=== PATIENT | male | born 1995 | race Hispanic/Latino ===

== ENCOUNTER 2023-06-09 08:09 | Emergency (ER) | payer OTHER ==
[~2023-06-09] VITALS: Ht 175.3 cm; Wt 62.1 kg
[2023-06-09] MEDS ORDERED: METH-1165 PO (11:15)
[2023-06-09] MEDS ORDERED: NAPR-837 PO (11:15)
[2023-06-09 11:33] VITALS: BP 135/84; TEMP 98.5; O2SAT 96
== END 2023-06-09 11:35 | disposition home or self-care (01) ==
LOC: M ED 08:09
DX: S13.4XXA Sprain of ligaments of cervical spine, initial encounter (principal); F17.200 Nicotine dependence, unspecified, uncomplicated; J45.909 Unspecified asthma, uncomplicated; V49.40XA Driver injured in collision with unspecified motor vehicles in traffic accident, initial encounter; Z79.1 Long term (current) use of non-steroidal anti-inflammatories (NSAID); Z79.899 Other long term (current) drug therapy

== ENCOUNTER 2023-09-13 07:21 | Inpatient (IN) | payer OTHER ==
[~2023-09-13] VITALS: Ht 175.3 cm; Wt 60.1 kg
[~2023-09-13 07:21] MED LIST: METH-1165 PO; NAPR-837 PO
[2023-09-13 08:20] LABS: HEMATOCRIT 51.1 % (42.0-52.0); HEMOGLOBIN 17.5 g/dl (13.5-17.5); MEAN CORPUSCULAR HEMOGLOBIN 32.8 pg (27.0-33.0); MEAN CORPUSCULAR HGB CONC 34.2 g/dl (32.0-36.5); MEAN CORPUSCULAR VOLUME 95.9 fl (80.0-96.0); PLATELET COUNT, AUTOMATED 245 10^3/uL (150-450); RED BLOOD COUNT 5.33 10^6/uL (4.30-6.10); WHITE BLOOD COUNT 10.1 10^3/uL (4.0-10.0)
[2023-09-13 08:44] LABS: ALBUMIN 4.8 G/DL (3.2-5.2); ALKALINE PHOSPHATASE 109 U/L (46-116); ALT/SGPT 22 U/L (7.0-40); AST/SGOT 11 U/L (<34); BILIRUBIN,DIRECT 0.2 MG/DL (<0.4); BILIRUBIN,TOTAL 0.6 MG/DL (0.3-1.2); BLOOD UREA NITROGEN 25 MG/DL (9-23); CALCIUM LEVEL 10.1 MG/DL (8.5-10.1); CARBON DIOXIDE LEVEL 23 MMOL/L (20-31); CHLORIDE LEVEL 108 MMOL/L (98-107); CREATININE FOR GFR 1.05 MG/DL (0.70-1.30); GLOMERULAR FILTRATION RATE > 60.0 (>60); GLUCOSE, FASTING 105 MG/DL (60-100); POTASSIUM SERUM 4.3 MMOL/L (3.5-5.1); SALICYLATE LEVEL < 3.0 MG/DL (<30); SODIUM LEVEL 139 MMOL/L (136-145); TOTAL PROTEIN 8.2 G/DL (5.7-8.2)
[2023-09-13 08:46] LABS: ETHYL ALCOHOL (ETHANOL) < 0.003 % (0.000-0.010); THYROID STIMULATING HORMONE 1.024 uIU/ML (0.55-4.78)
[2023-09-13] MEDS ORDERED: MED REC IN PROGRESS XX SCH (08:50)
[2023-09-13] MEDS ORDERED: HOME MED LIST COMPLETE! XX SCH (09:35)
[2023-09-13 09:40] LABS: AMPHETAMINES LEVEL URINE NEGATIVE (NEGATIVE)
[2023-09-13 09:41] LABS: BARBITURATES URINE NEGATIVE (NEGATIVE); COCAINE METABOLITE URINE NEGATIVE (NEGATIVE); METHADONE URINE NEGATIVE (NEGATIVE); OPIATES URINE NEGATIVE (NEGATIVE); PHENCYCLIDINE URINE NEGATIVE (NEGATIVE)
[2023-09-13 09:43] LABS: BENZODIAZEPINES URINE POSITIVE (NEGATIVE); CANNABINOIDS URINE POSITIVE (NEGATIVE)
[2023-09-13] MEDS ORDERED: OLANZapine ORAL DISINTEGRATING TAB 5MG PO PRN (14:40)
[2023-09-13] MEDS ORDERED: IBUPROFEN 400MG TAB PO PRN (14:40)
[2023-09-13] MEDS ORDERED: MAALOX 30 ML SUSP *UDC PO PRN (14:40)
[2023-09-13] MEDS ORDERED: diphenhydrAMINE 25MG CAP PO PRN (14:40)
[2023-09-13] MEDS ORDERED: ACETAMINOPHEN TAB 650MG DOSE (2X325MG) PO PRN (14:40)
[2023-09-13] MEDS ORDERED: MOM 30ML SUSPENSION UDC PO PRN (14:40)
[2023-09-13 16:29] VITALS: BP 132/82; TEMP 99.8; O2SAT 99
[2023-09-13] MEDS: traZODone 50 MG TAB PO PRN (20:08)
[2023-09-14 06:40] VITALS: BP 116/66; TEMP 98.4; O2SAT 98
[2023-09-14] MEDS: PROPRANOLOL 10 MG TAB PO SCH ×2 (09:00→20:37)
[2023-09-14] MEDS: NICOTINE 14 MG/24 HR TRANSDERMAL TD SCH (09:55)
[2023-09-14 17:20] VITALS: BP 126/85; TEMP 98.2
[2023-09-14] MEDS: traZODone 50 MG TAB PO PRN (20:32)
[2023-09-14 20:37] VITALS: BP 149/95
[2023-09-14] MEDS ORDERED: QUEtiapine FUMARATE 50MG TAB PO SCH (21:00)
[2023-09-14] MEDS: THIAMINE 100 MG TAB PO SCH (21:00)
[2023-09-14] MEDS ORDERED: LORazepam 1 MG TAB PO ONE (22:55)
[2023-09-15] VITALS (18 sets, daily range): BP systolic 121–165; BP diastolic 68–95; TEMP 98–98.6; O2SAT 97–100
[2023-09-15] MEDS ORDERED: LORazepam 2 MG TAB PO PRN (00:40)
[2023-09-15] MEDS ORDERED: diphenhydrAMINE 50MG/ML VIAL IM STA ×5 (01:24→12:32)
[2023-09-15] MEDS ORDERED: HALOPERIDOL 5MG/ML 1ML VIAL IM STA ×5 (01:24→12:32)
[2023-09-15] MEDS ORDERED: LORazepam 2 MG/ML 1ML VIAL IM STA ×5 (01:24→12:32)
[2023-09-15] MEDS ORDERED: FOLIC ACID 1MG TAB PO SCH (09:00)
[2023-09-15] MEDS ORDERED: MULTIVITAMINS/MINERALS THERAP 1 TAB PO SCH (09:00)
[2023-09-15] MEDS: NICOTINE 14 MG/24 HR TRANSDERMAL TD SCH (09:00)
[2023-09-15] MEDS: PROPRANOLOL 10 MG TAB PO SCH (09:00)
[2023-09-15] MEDS: THIAMINE 100 MG TAB PO SCH (09:00)
[2023-09-15 12:37] LABS: ALBUMIN 4.7 G/DL (3.2-5.2); ALKALINE PHOSPHATASE 101 U/L (46-116); ALT/SGPT 29 U/L (7.0-40); AST/SGOT 107 U/L (<34); BILIRUBIN,TOTAL 1.2 MG/DL (0.3-1.2); BLOOD UREA NITROGEN 30 MG/DL (9-23); CALCIUM LEVEL 9.6 MG/DL (8.5-10.1); CARBON DIOXIDE LEVEL 19 MMOL/L (20-31); CHLORIDE LEVEL 110 MMOL/L (98-107); CHOLESTEROL LEVEL 188 MG/DL (<200); CHOLESTEROL RISK RATIO 5.23 (<5); CREATININE FOR GFR 1.16 MG/DL (0.70-1.30); GLOMERULAR FILTRATION RATE > 60.0 (>60); GLUCOSE, FASTING 103 MG/DL (60-100); HDL CHOLESTEROL 35.9 MG/DL (>40); LDL CHOLESTEROL 132.7 MG/DL (<100); NON-HDL-C 152.1 MG/DL; POTASSIUM SERUM 4.1 MMOL/L (3.5-5.1); SODIUM LEVEL 139 MMOL/L (136-145); TOTAL PROTEIN 7.6 G/DL (5.7-8.2); TRIGLYCERIDES LEVEL 97 MG/DL (<150)
[2023-09-15 13:06] LABS: BASO % 0.2 % (0.0-1.0); EOS % 0.1 % (0.0-3.0); HEMATOCRIT 47.8 % (42.0-52.0); HEMOGLOBIN 16.9 g/dl (13.5-17.5); LYMPH # 2.3 10^3/uL (1.5-5.0); LYMPH % 14.9 % (24.0-44.0); MEAN CORPUSCULAR HEMOGLOBIN 33.1 pg (27.0-33.0); MEAN CORPUSCULAR HGB CONC 35.4 g/dl (32.0-36.5); MEAN CORPUSCULAR VOLUME 93.5 fl (80.0-96.0); MONO # 1.8 10^3/uL (0.0-0.8); MONO % 11.7 % (2.0-8.0); NEUTROPHILS % 72.6 % (36.0-66.0); PLATELET COUNT, AUTOMATED 233 10^3/uL (150-450); RED BLOOD COUNT 5.11 10^6/uL (4.30-6.10); WHITE BLOOD COUNT 15.2 10^3/uL (4.0-10.0)
[2023-09-15 13:09] LABS: CPK CREATINE PHOSPHOKINASE 5016 U/L (46-171)
== END 2023-09-15 13:52 | disposition short-term general hospital (02) | DRG 776 ==
LOC: M ED 07:21 → M ED INP 14:37 → M PSY 15:51
PROVIDERS: ADMIT Student in an Organized Health Care Education/Training Program; ATTEND Student in an Organized Health Care Education/Training Program
DX: F12.951 Cannabis use, unspecified with psychotic disorder with hallucinations (principal); J45.909 Unspecified asthma, uncomplicated; F43.20 Adjustment disorder, unspecified; F60.89 Other specific personality disorders; F17.210 Nicotine dependence, cigarettes, uncomplicated; Z78.1 Physical restraint status; Z56.0 Unemployment, unspecified; Z63.0 Problems in relationship with spouse or partner; Z20.822 Contact with and (suspected) exposure to COVID-19

== ENCOUNTER 2023-09-15 12:56 | Inpatient (IN) | payer OTHER ==
[2023-09-15] VITALS (7 sets, daily range): BP systolic 114–150; BP diastolic 81–94; TEMP 98–98.3; O2SAT 94–99
[2023-09-15] MEDS ORDERED: LORazepam 2 MG/ML 1ML VIAL IM PRN (14:00)
[2023-09-15] MEDS ORDERED: LORazepam 2 MG/ML 1ML VIAL IV PRN (14:15)
[2023-09-15] MEDS: dexmedeTOMidine 200 MCG in IV 1 EA IV SCH ×4 (14:15→22:08)
[2023-09-15] MEDS: D5W/LR 1,000 ML IV SCH ×3 (14:16→23:08)
[2023-09-15 15:28] LABS: BLOOD UREA NITROGEN 31 MG/DL (9-23); CALCIUM LEVEL 9.2 MG/DL (8.5-10.1); CARBON DIOXIDE LEVEL 23 MMOL/L (20-31); CHLORIDE LEVEL 111 MMOL/L (98-107); CREATININE FOR GFR 1.29 MG/DL (0.70-1.30); GLOMERULAR FILTRATION RATE > 60.0 (>60); GLUCOSE, FASTING 113 MG/DL (60-100); POTASSIUM SERUM 4.2 MMOL/L (3.5-5.1); SODIUM LEVEL 140 MMOL/L (136-145)
[2023-09-15 15:40] LABS: CPK CREATINE PHOSPHOKINASE 5466 U/L (46-171)
[2023-09-15] MEDS: LORazepam 2 MG/ML 1ML VIAL IV PRN ×3 (16:33→23:11)
[2023-09-15] MEDS ORDERED: HOME MED LIST COMPLETE! XX SCH (18:00)
[2023-09-16] VITALS (9 sets, daily range): BP systolic 117–155; BP diastolic 63–84; TEMP 97.8–99.5; O2SAT 98–100
[2023-09-16] MEDS: D5W/LR 1,000 ML IV SCH ×2 (03:43→07:38)
[2023-09-16 04:47] LABS: ALBUMIN 3.3 G/DL (3.2-5.2); ALKALINE PHOSPHATASE 82 U/L (46-116); ALT/SGPT 25 U/L (7.0-40); AST/SGOT 61 U/L (<34); BLOOD UREA NITROGEN 22 MG/DL (9-23); CALCIUM LEVEL 8.5 MG/DL (8.5-10.1); CARBON DIOXIDE LEVEL 25 MMOL/L (20-31); CHLORIDE LEVEL 111 MMOL/L (98-107); CREATININE FOR GFR 0.98 MG/DL (0.70-1.30); GLOMERULAR FILTRATION RATE > 60.0 (>60); GLUCOSE, FASTING 114 MG/DL (60-100); MAGNESIUM LEVEL 1.7 MG/DL (1.8-2.4); PHOSPHORUS LEVEL 3.9 MG/DL (2.5-4.9); POTASSIUM SERUM 4.1 MMOL/L (3.5-5.1); SODIUM LEVEL 141 MMOL/L (136-145); TOTAL PROTEIN 5.6 G/DL (5.7-8.2)
[2023-09-16 05:13] LABS: CPK CREATINE PHOSPHOKINASE 3365 U/L (46-171)
[2023-09-16] MEDS ORDERED: MAG SULF 1GM/100ML (MAG RUN) 1 GM in IV 1 EA IV ONE ×2 (07:45→15:00)
[2023-09-16] MEDS: ENOXAPARIN 40MG/0.4ML SYRINGE (J1650 PER 10MG) SC SCH (08:05)
[2023-09-16] MEDS ORDERED: D5W/LR 1,000 ML IV SCH (14:10)
[2023-09-16] MEDS ORDERED: LORazepam 2 MG/ML 1ML VIAL IV PRN (14:20)
[2023-09-16] MEDS ORDERED: OLANZapine 5 MG TAB PO PRN (14:20)
[2023-09-16] MEDS: LR 1,000 ML IV SCH ×2 (14:29→23:34)
[2023-09-17 04:01] VITALS: BP 140/78; TEMP 99.1; O2SAT 96
[2023-09-17 06:18] LABS: BASO % 0.3 % (0.0-1.0); EOS # 0.2 10^3/uL (0.0-0.5); EOS % 2.1 % (0.0-3.0); HEMATOCRIT 40.8 % (42.0-52.0); LYMPH # 2.3 10^3/uL (1.5-5.0); LYMPH % 30.5 % (24.0-44.0); MEAN CORPUSCULAR HEMOGLOBIN 33.2 pg (27.0-33.0); MEAN CORPUSCULAR VOLUME 94.7 fl (80.0-96.0); MONO # 0.7 10^3/uL (0.0-0.8); NEUTROPHILS # 4.4 10^3/uL (1.5-8.5); NEUTROPHILS % 57.8 % (36.0-66.0); PLATELET COUNT, AUTOMATED 172 10^3/uL (150-450); RED BLOOD COUNT 4.31 10^6/uL (4.30-6.10); WHITE BLOOD COUNT 7.7 10^3/uL (4.0-10.0)
[2023-09-17 06:19] LABS: HEMOGLOBIN 14.3 g/dl (13.5-17.5)
[2023-09-17] MEDS: LR 1,000 ML IV SCH ×2 (06:20→14:20)
[2023-09-17 06:40] LABS: BLOOD UREA NITROGEN 12 MG/DL (9-23); CALCIUM LEVEL 8.6 MG/DL (8.5-10.1); CARBON DIOXIDE LEVEL 27 MMOL/L (20-31); CHLORIDE LEVEL 111 MMOL/L (98-107); CREATININE FOR GFR 0.92 MG/DL (0.70-1.30); GLOMERULAR FILTRATION RATE > 60.0 (>60); GLUCOSE, FASTING 83 MG/DL (60-100); POTASSIUM SERUM 3.8 MMOL/L (3.5-5.1); SODIUM LEVEL 144 MMOL/L (136-145)
[2023-09-17 06:52] LABS: CPK CREATINE PHOSPHOKINASE 2743 U/L (46-171)
[2023-09-17] MEDS ORDERED: LR 1,000 ML IV ONE (08:00)
[2023-09-17] MEDS: ENOXAPARIN 40MG/0.4ML SYRINGE (J1650 PER 10MG) SC SCH (08:08)
[2023-09-17 14:00] VITALS: BP 118/74; TEMP 99; O2SAT 99
== END 2023-09-17 17:25 | DRG 52 ==
LOC: M ICU 13:55 → M MSPAV 09-16 22:43
PROVIDERS: ADMIT Internal Medicine Pulmonary Disease; ATTEND Internal Medicine
DX: G92.8 Other toxic encephalopathy (principal); M62.82 Rhabdomyolysis; F12.151 Cannabis abuse with psychotic disorder with hallucinations; E83.42 Hypomagnesemia; F17.200 Nicotine dependence, unspecified, uncomplicated; F32.A Depression, unspecified; E86.0 Dehydration

== ENCOUNTER 2023-09-17 11:56 | Inpatient (IN) | payer OTHER ==
[~2023-09-17] VITALS: Ht 175.3 cm; Wt 56.9 kg
[2023-09-17] MEDS: NICOTINE 21MG/24HR 1 EA TRANSDERMAL TD SCH (09:00)
[2023-09-17] MEDS ORDERED: MOM 30ML SUSPENSION UDC PO PRN (12:00)
[2023-09-17] MEDS ORDERED: diphenhydrAMINE 25MG CAP PO PRN (12:00)
[2023-09-17] MEDS ORDERED: LORazepam 1 MG TAB PO PRN (12:00)
[2023-09-17] MEDS ORDERED: ACETAMINOPHEN TAB 650MG DOSE (2X325MG) PO PRN (12:00)
[2023-09-17] MEDS ORDERED: IBUPROFEN 400MG TAB PO PRN (12:00)
[2023-09-17] MEDS ORDERED: MAALOX 30 ML SUSP *UDC PO PRN (12:00)
[2023-09-17 17:26] VITALS: BP 145/91; TEMP 98.2; O2SAT 100
[2023-09-17] MEDS: traZODone 50 MG TAB PO PRN (20:42)
[2023-09-17] MEDS: OLANZapine 2.5MG TABLET PO SCH (20:42)
[2023-09-18 06:49] VITALS: BP 126/72; TEMP 98.6; O2SAT 100
[2023-09-18] MEDS: NICOTINE 21MG/24HR 1 EA TRANSDERMAL TD SCH (09:07)
[2023-09-18] MEDS: OLANZapine 2.5MG TABLET PO SCH ×2 (09:07→20:18)
[2023-09-18 16:21] VITALS: BP 138/78; TEMP 98.1; O2SAT 100
[2023-09-18] MEDS: traZODone 50 MG TAB PO PRN (20:18)
[2023-09-19 06:41] VITALS: BP 112/68; TEMP 98.4; O2SAT 99
[2023-09-19] MEDS: NICOTINE 21MG/24HR 1 EA TRANSDERMAL TD SCH (09:00)
[2023-09-19] MEDS: OLANZapine 2.5MG TABLET PO SCH (09:28)
[2023-09-19] MEDS ORDERED: TRAZ-252 PO (12:32)
[2023-09-19] MEDS ORDERED: OLAN1TAB16 PO (12:32)
[2023-09-19] MEDS ORDERED: NICO21PAT TD (12:32)
[2023-09-19] MEDS ORDERED: OLAN2.5T25 PO (12:32)
== END 2023-09-19 15:10 | disposition home or self-care (01) | DRG 755 ==
LOC: M PSY 17:25
PROVIDERS: ADMIT Student in an Organized Health Care Education/Training Program; ATTEND Student in an Organized Health Care Education/Training Program
DX: F43.23 Adjustment disorder with mixed anxiety and depressed mood (principal); F60.89 Other specific personality disorders; F41.9 Anxiety disorder, unspecified